=== PATIENT | male | born 1935 | race Caucasian/White ===

== ENCOUNTER → 2019-03-14 | Outpatient (CLI) | payer MEDICARE ==
[~2019-03-14] MED LIST: ATEN50 PO; CIPR500 PO; Felodipine ER5 MG PO; IRON325 MG PO; LISI10; LISI20 PO; METO50ER PO; METR500 PO; SPIR25 PO; Vitamin D2000 UNIT PO; WARF10 PO; WARF4 PO; WARF7.5 PO
== END | disposition home or self-care (01) ==
LOC: PLD 07:28 → LAB SHORT 07:28
DX: B35.1 Tinea unguium (principal); L60.2 Onychogryphosis
CPT/HCPCS: 88305; 88312

== ENCOUNTER → 2020-01-27 | Outpatient (CLI) | payer MEDICARE ==
[~2020-01-27] MED LIST changes: +Xanax0.5 MG PO
[2020-01-27 12:24] LABS: BASOPHILS ABSOLUTE AUTO 0.05 K/mm3 (0.00-0.23); BASOPHILS PERCENT AUTO 1 % (0-2); EOSINOPHILS ABSOLUTE AUTO 0.46 K/mm3 (0.00-0.68); EOSINOPHILS PERCENT AUTO 5 % (0-6); Hematocrit 44.6 % (37.0-53.0); Hemoglobin 15.5 g/dL (13.5-17.5); IMMATURE GRAN ABSOLUTE AUTO 0.03 K/mm3 (0.00-0.10); IMMATURE GRAN PERCENT AUTO 0 % (0-1); LYMPHOCYTES ABSOLUTE AUTO 1.34 K/mm3 (0.84-5.20); LYMPHOCYTES PERCENT AUTO 15 % (21-46); MONOCYTES ABSOLUTE AUTO 0.52 K/mm3 (0.16-1.47); MONOCYTES PERCENT AUTO 6 % (4-13); Mean Corpuscular HGB 33.5 pg (26.0-34.0); Mean Corpuscular HGB Conc 34.8 g/dL (31.5-36.5); Mean Corpuscular Volume 96 fL (80-100); NEUTROPHILS ABSOLUTE AUTO 6.56 K/mm3 (1.96-9.15); NEUTROPHILS PERCENT AUTO 73 % (41-73); Platelet Count 235 K/mm3 (150-400); RDW Coefficient Variation 12.7 % (11.7-14.2); RDW Standard Deviation 45.1 fL (35.1-46.3); Red Blood Cell Count 4.63 M/mm3 (4.30-5.90); White Blood Cell Count 8.96 K/mm3 (4.00-11.30)
[2020-01-27 12:33] LABS: Albumin/Globulin Ratio 1.1 (0.8-1.8); Bilirubin, Total 1.3 mg/dL (0.1-1.0); Bun/Creatinine Ratio 16.5 (12.0-20.0); Calcium, Blood 8.9 mg/dL (8.5-10.1); Creatinine, Blood 1.21 mg/dL (0.60-1.20); Globulin, Blood 3.8 g/dL (2.2-4.0); Potassium, Blood 3.9 mmol/L (3.5-5.5); Total Protein, Blood 7.8 g/dL (6.4-8.2)
[2020-01-27 13:11] LABS: International Normalized Ratio 3.4; Prothrombin Time Results 33.9 Sec (9.7-11.5)
== END ==
LOC: LAB EV 12:14 → LAB SHORT 12:14
PROVIDERS: Emergency Medicine
DX: Z79.01 Long term (current) use of anticoagulants (principal); Z51.81 Encounter for therapeutic drug level monitoring; F32.9 Major depressive disorder, single episode, unspecified
CPT/HCPCS: 80053; 85025; 85610

== ENCOUNTER 2021-07-27 09:40 | Day surgery (SDC) | payer MEDICARE ==
[~2021-07-27] VITALS: Ht 180.3 cm; Wt 98.2 kg
[2021-07-27] MEDS ORDERED: METO25ER PO (10:29)
[2021-07-27] MEDS ORDERED: HYDPAM25 PO (10:29)
[2021-07-27] MEDS ORDERED: FISH OIL 1,2001 EAC7 PO (10:30)
--- NOTE | 2021-07-27 10:31 | NUR ---
07/27/21 1031 Natty Sánchez 1ST IV ATTEMPT IN RH INFILTRATED, ATTEMPTED BY NATTYRN
== END 2021-07-27 12:00 | disposition home or self-care (01) ==
LOC: ORSCSDS 09:40
PROVIDERS: Internal Medicine Gastroenterology
PROC: 0DB58ZX Excision of Esophagus, Via Natural or Artificial Opening Endoscopic, Diagnostic (ICD-10-PCS; principal; 2021-07-27 11:00)
PROC: 0D757ZZ Dilation of Esophagus, Via Natural or Artificial Opening (ICD-10-PCS; principal; 2021-07-27 11:00)
DX: K21.9 Gastro-esophageal reflux disease without esophagitis (principal); R13.10 Dysphagia, unspecified; K22.2 Esophageal obstruction; K44.9 Diaphragmatic hernia without obstruction or gangrene; I10 Essential (primary) hypertension; I48.20 Chronic atrial fibrillation, unspecified; Z79.01 Long term (current) use of anticoagulants; Z86.73 Personal history of transient ischemic attack (TIA), and cerebral infarction without residual deficits; E78.5 Hyperlipidemia, unspecified; Z79.899 Other long term (current) drug therapy
CPT/HCPCS: 88305; J2704; J7120

== ENCOUNTER 2022-08-26 05:50 | Day surgery (SDC) | payer MEDICARE ==
[~2022-08-26] VITALS: Ht 180.3 cm; Wt 96.0 kg
[~2022-08-26 05:50] MED LIST changes: +ELIQUIS5 M2 PO; +FISH OIL 1,2001 EAC7 PO; +HYDCHL12.5 PO; +HYDHCL25 PO; +HYDPAM25 PO; +METO25ER PO; +OMEP20ER PO
[2022-08-26] MEDS ORDERED: TUMERIC PO (06:34)
[2022-08-26] MEDS ORDERED: MULVITA PO (06:35)
--- NOTE | 2022-08-26 08:50 | NUR ---
PATIENT ARRIVED TO RECOVERY ROOM, SITTING UPRIGHT IN RECLINER AND CONVERSING APPROPRIATELY. L CHEST SITE C/D/I, ICE PACK APPLIED. VSS ON ROOM AIR.
--- NOTE | 2022-08-26 09:26 | NUR ---
pt taken to imaging via for post procedure xray.
--- NOTE | 2022-08-26 09:31 | NUR ---
pt back to recover from imaging. pt attached to monitor. repeat v/s.
--- NOTE | 2022-08-26 09:34 | NUR ---
pt given breakfast tray. pt sitting up in chair eating.
--- NOTE | 2022-08-26 10:57 | NUR ---
PATIENT AMBULATING TO RESTROOM WITHOUT DIFFICULTY. PATIENT TOLERATING PO INTAKE WELL. VSS ON ROOM AIR. DRESSING SITE C/D/I, ICE PACK IN PLACE. DISCHARGE INSTRUCTIONS REVIEWED WITH PATIENT AND . ALL QUESTIONS WERE ANSWERED APPORPRIATELY.
--- NOTE | 2022-08-26 11:21 | NUR ---
CHEST X RAY AND EKG PERFORMED WITHOUT DIFFICULTY. PATIENT SITTING COMFORTABLY IN THE RECLINER COVERSING WITH . VSS ON ROOM AIR.
--- NOTE | 2022-08-26 11:30 | NUR ---
PATIENT DISCHARGED HOME AT THIS TIME. PIV REMOVED WITHOUT DIFFICULTY, CATHETER INTACT. L CHEST DRESSING D/I, MINIMAL AMOUNT OF BLOOD. VSS ON ROOM AIR. DISCHARGE PAPERWORK AND BELONGINGS LEFT WITH PATIENT.
== END 2022-08-26 11:44 | disposition home or self-care (01) ==
LOC: MHTC 05:50
DX: I48.11 Longstanding persistent atrial fibrillation (principal); E85.9 Amyloidosis, unspecified; Z88.8 Allergy status to other drugs, medicaments and biological substances; E78.5 Hyperlipidemia, unspecified; I12.9 Hypertensive chronic kidney disease with stage 1 through stage 4 chronic kidney disease, or unspecified chronic kidney disease; N18.9 Chronic kidney disease, unspecified
CPT/HCPCS: 33207; 71046; 93005; 93010; 99152; 99153; C1786; C1894; C1898; J0690; J1644; J2250; J3010; J7030; J7040

== ENCOUNTER → 2022-10-27 | Outpatient (CLI) | payer MEDICARE ==
[~2022-10-27] MED LIST changes: +MULVITA PO; +TUMERIC PO
== END | disposition home or self-care (01) ==
LOC: LAB 11:55 → LAB SHORT 11:55
DX: I27.20 Pulmonary hypertension, unspecified (principal); I51.7 Cardiomegaly
CPT/HCPCS: 88304; 88313

== ENCOUNTER → 2023-09-19 | Outpatient (CLI) | payer MEDICARE | END | disposition home or self-care (01) | LOC: LAB SHORT 17:30 → LAB 17:30 | DX: B35.3 Tinea pedis (principal) | CPT/HCPCS: 87220 ==

== ENCOUNTER → 2023-09-19 | Outpatient (CLI) | payer MEDICARE | END | disposition home or self-care (01) | LOC: LAB SHORT 08:08 → LAB 08:08 | DX: L60.2 Onychogryphosis (principal); B35.1 Tinea unguium | CPT/HCPCS: 88305; 88312 ==

== ENCOUNTER → 2023-12-08 | Outpatient (CLI) | payer MEDICARE | END | disposition home or self-care (01) | LOC: LAB 11:57 → LAB SHORT 11:57 | DX: L73.8 Other specified follicular disorders (principal) | CPT/HCPCS: 87070; 87077; 87186; 87205 ==